=== PATIENT | male | born 1980 | race Asian ===

== ENCOUNTER 2022-02-10 14:10 | Emergency (ER) | payer BC, MEDICAID ==
[~2022-02-10] VITALS: Ht 162.6 cm; Wt 70.3 kg
[2022-02-10 14:12] VITALS: BP 116/80
--- NOTE | 2022-02-10 15:10 | NUR ---
42YO MALE PT BIBA C/O PRESSURED 9/10 CHEST PAIN [id number]. PAIN CONSTANT W/O RADIAITON. STATES PAIN STARTED AFTER ARGUEMENT W/ MOM . PT W/ HX OF DEPRESSION AND ANXIETY AND STATES BEING UNCOMPLIANT W/ RX [id number]. DENIES N/V/D, FEVER, CHILLS OR SOB. PT AAOX4, MUMBLED SPEECH. RESPIRATIONS EVEN AND UNLABORED. HX:ANXIETY, DEPRESSION NKA MEDS: DEPAKOTE, RISPERIDONE
--- NOTE | 2022-02-10 15:20 | NUR ---
MD COLE AT BEDSIDE FOR EVALUATION
--- NOTE | 2022-02-10 15:42 | NUR ---
LAB AT BEDSIDE
[2022-02-10 16:00] LABS: BASOPHILS # (AUTO) 0.1 K/uL (0.00-0.22); BASOPHILS % (AUTO) 0.6 % (0.0-2.0); EOSINOPHILS # (AUTO) 0.1 K/uL (0-0.4); EOSINOPHILS % (AUTO) 0.4 % (0.0-4.0); HEMATOCRIT 46.2 % (36-52); LYMPHOCYTES # (AUTO) 2.3 K/uL (2.0-11.5); LYMPHOCYTES % (AUTO) 17.2 % (20.5-51.1); MEAN CORPUSCULAR HEMOGLOBIN 30 pg (27-31); MEAN CORPUSCULAR HGB CONC 35 g/dL (33-37); MEAN CORPUSCULAR VOLUME 84.9 fL (80-94); MONOCYTES # (AUTO) 0.9 K/uL (0.8-1.0); MONOCYTES % (AUTO) 6.3 % (1.7-9.3); NEUTROPHILS # (AUTO) 10.3 K/uL (1.8-7.7); NEUTROPHILS % (AUTO) 75.5 % (42.2-75.2); PLATELET COUNT (AUTO) 289 K/uL (140-450); RED BLOOD CELL COUNT(AUTO) 5.44 MIL/uL (4.20-6.10); RED CELL DISTRIBUTION WIDTH 13.3 % (11.6-13.7); WHITE BLOOD COUNT (AUTO) 13.6 K/uL (4.8-10.8)
--- NOTE | 2022-02-10 16:08 | NUR ---
call received from MONICA adams per pt -updated on pt status .
[2022-02-10 16:24] LABS: ANION GAP 14.8 (8-16); CREATININE 0.8 mg/dL (0.6-1.3); POTASSIUM 3.8 mmol/L (3.5-5.1)
--- NOTE | 2022-02-10 18:16 | NUR ---
PT ON TELEPSYCH W/ MD TRAVIS
--- NOTE | 2022-02-10 19:12 | NUR ---
[place] [facility] AT BEDSIDE
--- NOTE | 2022-02-10 19:25 | NUR ---
REPORT GIVEN TO LÓPEZ JOSE. TRANSFER CARE AT THIS TIME
--- NOTE | 2022-02-10 19:39 | NUR ---
OFFICER QUINN [place] [facility] HERE TO ASSESS PT FOR 5150. OFFICER QUINN STATED PT DOES NOT MEET 5150 [place] AT THIS TIME. OFFICER QUINN ASKED TO BE CALLED IF PT MAKES ANY STATEMENTS OF SI OR HI. PT VERBALLY STATED TO OFFICER QUINN " I DONT WANT TO KILL MY PARENTS , I WANT TO KILL OFF THE [place]IP WITH MY PARENTS"
--- NOTE | 2022-02-10 19:45 | NUR ---
42 YO M BIB SELF WITH C/C CHEST THAT HAS ALREADY SUBSIDED. PT STATES HE IS ANXIOUS, AT ONE POINT PT STATED HE WANTS TO KILL PARENTS. [place] [employer] IS AT BEDSIDE, STATES PT DENIES THAT STATEMENT, WHAT HE MEANT WAS HE WANTS TO KILL OFF THE RELATIONSHIP WITH HIS PARENTS. OFFICER QUINN STATES IF THE PT MAKES ANY STATEMENTS THAT REQUIRE 5150 TO LET HIM KNOW. DENIES HX, RX AND ALLERGIES
--- NOTE | 2022-02-10 19:50 | NUR ---
PT IS RESTING IN BED. IS A&OX4. DR TRAVIS SPOKE WITH PT EARLIER AND REQUESTED A 5150. [place] SOLER ASSESSED PT AND DECLINED TO PUT A HOLD ON PT. OFFICER QUINN STATED PT DIDNT MEET [place] FOR A 5150 HOLD. PT IS SITTING UP RESP EVEN AND UNLABORED. ANSWERING ALL QUESTIONS APPORIETELY. DENIES PAIN CP OR SOB. SKIN WARM AND DRY. NKDA NO MED HX
--- NOTE | 2022-02-10 20:26 | NUR ---
MONICA [phone]
[2022-02-10] MEDS ORDERED: DIVALPROEX 500 MG TABEC PO ONE (21:46)
[2022-02-10] MEDS ORDERED: ESCITALOPRAM 20 MG TAB ONE (21:47)
[2022-02-10] MEDS ORDERED: risperiDONE 1 MG TAB ONE (21:48)
[2022-02-10 22:24] LABS: BARBITURATE, URINE NEGATIVE ng/ml (NEG <=200); BENZODIAZEPINE, URINE NEGATIVE ng/mL (NEG <=200); CANNABINOID, URINE NEGATIVE ng/mL (NEG <=50); COCAINE, URINE NEGATIVE ng/mL (NEG <=300); OPIATE, URINE NEGATIVE ng/mL (NEG <=2000); PHENCYCLIDINE SCREEN,URINE NEGATIVE ng/mL (NEG <=25)
--- NOTE | 2022-02-10 23:22 | NUR ---
SPOKE WITH DR TRAVIS,IS AWARE OF PD NOT PLACING 5150 ON PT. PENDING DC , PT IS MEDICALLY CLEARED
--- NOTE | 2022-02-11 00:18 | NUR ---
SPOKE WITH DR TRAVIS REGARDING DISPO AND PT CONDITION. PT IS TO STAY AND REASSESS PT IN AM
--- NOTE | 2022-02-11 00:46 | NUR ---
PT IS ASLEEP RESP EVEN AND UNLABORED. HOB ELEVATED BED AT LOWEST POSITION SIDE RAILS UPX2
--- NOTE | 2022-02-11 02:18 | NUR ---
PT IS ALSEEP WITH RESP EVEN AND UNLABORED. HOB IS ELEVATED. PT IS IN VIEW FROM NURSING STATION. BED AT LOWEST POSITION SIDE RAILS UP X2
--- NOTE | 2022-02-11 06:40 | NUR ---
DR TRAVIS TO REASSESS PT THIS AM. CALL OUT TO DR TRAVIS
--- NOTE | 2022-02-11 06:53 | NUR ---
DR TRAVIS ON ZOOM SPEAKING WITH PT
--- NOTE | 2022-02-11 06:59 | NUR ---
PT WILL BE DISCHARGED SOMETIME THIS MORING PER DR TEE . PENDING DISPO PAPERWORK
--- NOTE | 2022-02-11 08:46 | NUR ---
DR PEREYRA AT BEDSIDE.
--- NOTE | 2022-02-11 08:58 | NUR ---
SPOKE WITH MONICA ERICKSON HEAD OF SECURITY FROM [facility] REGARDING PICKING UP THE PT AFTER HIS DISCHARGE.
[2022-02-11] MEDS ORDERED: DIVALPROEX 500 MG TABEC PO ONE (09:00)
[2022-02-11] MEDS ORDERED: DIVALPROEX 500 MG TABEC PO SCH ×2 (09:00)
[2022-02-11] MEDS ORDERED: risperiDONE 1 MG TAB PO SCH ×3 (09:00)
[2022-02-11 09:20] VITALS: BP 141/69
--- NOTE | 2022-02-11 09:22 | NUR ---
Patient discharged with v/s stable. Written and verbal after care instructions given and explained. Patient verbalized understanding. Ambulatory with steady gait. All questions addressed prior to discharge. Advised to follow up with PMD.
--- NOTE | 2022-02-11 09:58 | NUR ---
The patient's care was reviewed and supervised by Shelby Naik RN.
[2022-02-11] MEDS ORDERED: ESCITALOPRAM 20 MG TAB PO SCH ×3 (17:00)
== END 2022-02-11 09:22 | disposition home or self-care (01) ==
LOC: MED 14:10
DX: F31.9 Bipolar disorder, unspecified (principal); Z20.822 Contact with and (suspected) exposure to COVID-19
CPT/HCPCS: 36415; 80048; 80305; 85025; 87426; 87635; 99285; C9803